=== PATIENT | male | born 1980 | race Caucasian/White ===

== ENCOUNTER 2017-11-16 12:47 | Emergency (ER) | payer BC ==
[~2017-11-16] VITALS: Ht 182.8 cm; Wt 106.6 kg
[~2017-11-16 12:47] MED LIST: CIPROFLOXACIN500 MG PO; FLOMAX0.4 MG PO; HYDROCODONE BIT1 T11 PO; NKHM; VICODIN 5/500 505 MG PO; ZITHROMAX Z PA250 MG PO
[2017-11-16 15:07] VITALS: BP 96/54
== END 2017-11-16 15:08 | disposition home or self-care (01) ==
LOC: ED 12:47
DX: R51 Headache (principal); Z90.89 Acquired absence of other organs; Z79.899 Other long term (current) drug therapy; Z88.5 Allergy status to narcotic agent

== ENCOUNTER 2017-12-01 18:04 | Emergency (ER) | payer BC ==
[~2017-12-01] VITALS: Ht 182.8 cm; Wt 106.6 kg
[2017-12-01 18:07] VITALS: BP 118/69
== END 2017-12-01 18:55 | disposition home or self-care (01) ==
LOC: ED 18:04
DX: I80.8 Phlebitis and thrombophlebitis of other sites (principal); G43.909 Migraine, unspecified, not intractable, without status migrainosus; F17.200 Nicotine dependence, unspecified, uncomplicated; Z90.89 Acquired absence of other organs; Z79.899 Other long term (current) drug therapy; Z88.5 Allergy status to narcotic agent

== ENCOUNTER → 2017-12-01 | Outpatient (CLI) | payer BC | END | disposition home or self-care (01) | LOC: US 16:00 | DX: M77.8 Other enthesopathies, not elsewhere classified (principal); I80.8 Phlebitis and thrombophlebitis of other sites; R60.9 Edema, unspecified ==

== ENCOUNTER → 2017-12-11 | Outpatient (CLI) | payer BC ==
[2017-12-11 08:46] LABS: BASO # 0.1 10*3/uL (0.0-0.1); BASO % 1.3 % (0.0-1.0); EOS # 0.3 10*3/uL (0.0-0.4); EOS % 5.1 % (1.0-4.0); HEMATOCRIT 41.8 % (42.0-52.0); LYMPH # 2.9 10*3/uL (1.3-4.4); LYMPH % 42.6 % (27.0-41.0); MEAN CELL VOLUME 93.1 fl (80.0-94.0); MEAN CORPUSCULAR HGB 31.2 pg (27.0-31.0); MEAN CORPUSCULAR HGB CONC 33.5 g/dl (33.0-37.0); MEAN PLATELET VOLUME 9.1 fl (9.6-12.3); MONO # 0.7 10*3/uL (0.1-1.0); MONO % 10.1 % (3.0-9.0); NEUT # 2.7 10*3/uL (2.3-7.9); NEUT % 40.8 % (47.0-73.0); PLATELET COUNT AUTOMATED 233 10*3/uL (130-400); RED BLOOD COUNT 4.49 10*6/uL (4.50-5.90); RED CELL DISTRI WIDTH 12.3 % (0-14.5); WHITE BLOOD COUNT 6.7 10*3/uL (4.8-10.8)
[2017-12-11 09:10] LABS: BUN 15 mg/dl (7-24); CHLORIDE 108 mmol/L (98-107); CHOLESTEROL 112 mg/dL (<200); CREATININE 1.19 mg/dL (0.70-1.30); HDL CHOLESTEROL 20 mg/dl (40-60); LDL CHOLESTEROL 26 mg/dL (9-159); POTASSIUM 4.4 mmol/L (3.5-5.1); SGOT/AST 26 IU/L (3-35); SGPT/ALT 42 U/L (12-78); SODIUM 143 mmol/L (136-145); TOTAL PROTEIN 7.5 gm/dL (6.4-8.2); TRIGLYCERIDES 330 mg/dl (<150); VLDL CHOLESTEROL 66 mg/dL (6-40)
[2017-12-11 09:19] LABS: ALKALINE PHOSPHATASE 115 U/L (45-117)
== END | disposition home or self-care (01) ==
LOC: LAB 08:24
PROVIDERS: Nurse Practitioner Family
DX: C62.91 Malignant neoplasm of right testis, unspecified whether descended or undescended (principal); I80.8 Phlebitis and thrombophlebitis of other sites; R79.89 Other specified abnormal findings of blood chemistry; Z72.0 Tobacco use

== ENCOUNTER → 2018-12-01 | Outpatient (CLI) | payer BC | END | disposition home or self-care (01) | LOC: US 07:15 | DX: K76.0 Fatty (change of) liver, not elsewhere classified (principal) ==

== ENCOUNTER → 2019-06-17 | Outpatient (CLI) | payer BC ==
[2019-06-17 10:23] LABS: BASO # 0.1 10*3/uL (0.0-0.1); EOS # 0.3 10*3/uL (0.0-0.4); EOS % 4.3 % (1.0-4.0); HEMATOCRIT 43.8 % (42.0-52.0); HEMOGLOBIN 14.5 g/dl (14.0-18.0); LYMPH # 2.3 10*3/uL (1.3-4.4); LYMPH % 34.7 % (27.0-41.0); MEAN CORPUSCULAR HGB 30.8 pg (27.0-31.0); MEAN CORPUSCULAR HGB CONC 33.1 g/dl (33.0-37.0); MEAN PLATELET VOLUME 9.1 fl (9.6-12.3); MONO # 0.6 10*3/uL (0.1-1.0); MONO % 9.4 % (3.0-9.0); NEUT # 3.4 10*3/uL (2.3-7.9); NEUT % 50.5 % (47.0-73.0); PLATELET COUNT AUTOMATED 263 10*3/uL (130-400); RED BLOOD COUNT 4.71 10*6/uL (4.50-5.90); RED CELL DISTRI WIDTH 12.2 % (0-14.5); WHITE BLOOD COUNT 6.7 10*3/uL (4.8-10.8)
[2019-06-17 10:51] LABS: BILIRUBIN, DIRECT 0.1 mg/dL (0.0-0.2)
[2019-06-17 10:52] LABS: ALBUMIN 4.1 gm/dl (3.1-4.5); ALKALINE PHOSPHATASE 113 U/L (45-117); BUN 13 mg/dl (7-24); CHLORIDE 111 mmol/L (98-107); CHOLESTEROL 142 mg/dL (<200); CREATININE 1.07 mg/dL (0.70-1.30); HDL CHOLESTEROL 28 mg/dl (40-60); LDL CHOLESTEROL 81 mg/dL (9-159); POTASSIUM 4.3 mmol/L (3.5-5.1); SGOT/AST 31 IU/L (3-35); SGPT/ALT 45 U/L (12-78); SODIUM 143 mmol/L (136-145); TRIGLYCERIDES 166 mg/dl (<150); URIC ACID 6.4 mg/dL (3.5-7.2); VLDL CHOLESTEROL 33 mg/dL (6-40)
== END | disposition home or self-care (01) ==
LOC: LAB 10:01
PROVIDERS: Internal Medicine Gastroenterology; Nurse Practitioner Family
DX: M10.9 Gout, unspecified (principal); E66.9 Obesity, unspecified; R74.8 Abnormal levels of other serum enzymes

== ENCOUNTER → 2020-01-30 | Outpatient (CLI) | payer BC ==
[2020-01-30 14:29] LABS: BASO # 0.1 10*3/uL (0.0-0.1); BASO % 1.2 % (0.0-1.0); EOS # 0.4 10*3/uL (0.0-0.4); EOS % 4.2 % (1.0-4.0); HEMATOCRIT 40.1 % (42.0-52.0); LYMPH # 3.1 10*3/uL (1.3-4.4); LYMPH % 37.3 % (27.0-41.0); MEAN CELL VOLUME 90.7 fl (80.0-94.0); MEAN CORPUSCULAR HGB CONC 34.2 g/dl (33.0-37.0); MEAN PLATELET VOLUME 9.1 fl (9.6-12.3); MONO # 0.8 10*3/uL (0.1-1.0); MONO % 9.3 % (3.0-9.0); NEUT # 3.9 10*3/uL (2.3-7.9); NEUT % 47.8 % (47.0-73.0); PLATELET COUNT AUTOMATED 232 10*3/uL (130-400); RED BLOOD COUNT 4.42 10*6/uL (4.50-5.90); RED CELL DISTRI WIDTH 12.4 % (0-14.5); WHITE BLOOD COUNT 8.2 10*3/uL (4.8-10.8)
[2020-01-30 14:54] LABS: ALBUMIN 4.1 gm/dl (3.1-4.5); ALKALINE PHOSPHATASE 109 U/L (45-117); BUN 11 mg/dl (7-24); CHLORIDE 106 mmol/L (98-107); CHOLESTEROL 121 mg/dL (<200); HDL CHOLESTEROL 25 mg/dl (40-60); LDL CHOLESTEROL 63 mg/dL (9-159); POTASSIUM 3.5 mmol/L (3.5-5.1); SGOT/AST 43 IU/L (3-35); SGPT/ALT 60 U/L (12-78); SODIUM 139 mmol/L (136-145); TOTAL PROTEIN 7.7 gm/dL (6.4-8.2); TRIGLYCERIDES 167 mg/dl (<150); URIC ACID 7.5 mg/dL (3.5-7.2); VLDL CHOLESTEROL 33 mg/dL (6-40)
== END | disposition home or self-care (01) ==
LOC: LAB 13:44
PROVIDERS: Nurse Practitioner Family
DX: E79.0 Hyperuricemia without signs of inflammatory arthritis and tophaceous disease (principal); R74.8 Abnormal levels of other serum enzymes; F17.210 Nicotine dependence, cigarettes, uncomplicated

== ENCOUNTER → 2020-01-31 | Outpatient (CLI) | payer BC | END | disposition home or self-care (01) | LOC: RAD 16:28 | DX: M10.9 Gout, unspecified (principal); R94.5 Abnormal results of liver function studies; R07.9 Chest pain, unspecified; Z72.0 Tobacco use ==

== ENCOUNTER → 2020-06-24 | Outpatient (CLI) | payer BC ==
[~2020-06-24] MED LIST changes: +ALLOPURINOL100 MG PO
== END | disposition home or self-care (01) ==
LOC: RAD 16:47
PROVIDERS: ATTEND Nurse Practitioner Family
DX: R07.81 Pleurodynia (principal); R07.9 Chest pain, unspecified; M10.9 Gout, unspecified; F17.210 Nicotine dependence, cigarettes, uncomplicated

== ENCOUNTER 2020-06-30 22:16 | Emergency (ER) | payer BC ==
[~2020-06-30] VITALS: Ht 180.3 cm; Wt 108.9 kg
[~2020-06-30 22:16] MED LIST changes: -ALLOPURINOL100 MG PO
[2020-06-30 22:21] VITALS: BP 119/81
[2020-06-30] MEDS ORDERED: ALLOPURINOL100 MG PO (22:25)
[2020-06-30 22:54] LABS: BASO # 0.1 10*3/uL (0.0-0.1); EOS # 0.4 10*3/uL (0.0-0.4); EOS % 4.6 % (1.0-4.0); HEMATOCRIT 40.5 % (42.0-52.0); LYMPH # 3.5 10*3/uL (1.3-4.4); LYMPH % 39.1 % (27.0-41.0); MEAN CELL VOLUME 90.8 fl (80.0-94.0); MEAN CORPUSCULAR HGB 30.9 pg (27.0-31.0); MEAN CORPUSCULAR HGB CONC 34.1 g/dl (33.0-37.0); MEAN PLATELET VOLUME 9.3 fl (9.6-12.3); MONO # 0.7 10*3/uL (0.1-1.0); NEUT # 4.2 10*3/uL (2.3-7.9); NEUT % 47.1 % (47.0-73.0); PLATELET COUNT AUTOMATED 250 10*3/uL (130-400); RED BLOOD COUNT 4.46 10*6/uL (4.50-5.90); RED CELL DISTRI WIDTH 11.9 % (0-14.5); WHITE BLOOD COUNT 8.9 10*3/uL (4.8-10.8)
[2020-06-30 23:14] LABS: ALBUMIN 3.8 gm/dl (3.1-4.5); ALKALINE PHOSPHATASE 117 U/L (45-117); BUN 13 mg/dl (7-24); CHLORIDE 108 mmol/L (98-107); CREATININE 1.09 mg/dL (0.70-1.30); POTASSIUM 3.5 mmol/L (3.5-5.1); SGOT/AST 36 IU/L (3-35); SGPT/ALT 58 U/L (12-78); SODIUM 141 mmol/L (136-145); TOTAL PROTEIN 7.6 gm/dL (6.4-8.2)
[2020-06-30 23:15] LABS: TROPONIN I < 0.015 ng/ml (<0.045)
[2020-06-30 23:17] LABS: ACT PARTIAL THROMBO TIME 28.4 SECONDS (20.0-32.1); INTERNATIONAL NORM RATIO 0.9 (2.0-3.5)
== END 2020-07-01 01:42 | disposition home or self-care (01) ==
LOC: ED 22:16
PROVIDERS: Physician Assistant
DX: R07.89 Other chest pain (principal); R22.2 Localized swelling, mass and lump, trunk; M54.9 Dorsalgia, unspecified; F17.200 Nicotine dependence, unspecified, uncomplicated; Z88.5 Allergy status to narcotic agent; Z79.899 Other long term (current) drug therapy

== ENCOUNTER → 2020-07-24 | Outpatient (CLI) | payer BC ==
[~2020-07-24] MED LIST changes: +ALLOPURINOL100 MG PO
== END | disposition home or self-care (01) ==
LOC: US 07:30
PROVIDERS: ATTEND Nurse Practitioner Family
DX: K76.0 Fatty (change of) liver, not elsewhere classified (principal)

== ENCOUNTER → 2020-08-08 | Outpatient (CLI) | payer BC | END | disposition home or self-care (01) | LOC: COVID19 09:41 | PROVIDERS: ATTEND Nurse Practitioner Family | DX: Z11.52 Encounter for screening for COVID-19 (principal); R19.7 Diarrhea, unspecified; R53.83 Other fatigue ==

== ENCOUNTER → 2020-10-07 | Outpatient (CLI) | payer BC | END | disposition home or self-care (01) | LOC: RAD 15:37 | PROVIDERS: ATTEND Nurse Practitioner Family | DX: M25.512 Pain in left shoulder (principal); R20.0 Anesthesia of skin ==

== ENCOUNTER 2020-11-13 23:15 | Inpatient (IN) | payer BC ==
[~2020-11-13] VITALS: Ht 182.8 cm; Wt 110.4 kg
[2020-11-13 23:23] VITALS: BP 128/80
[2020-11-13 23:46] LABS: BASO % 0.4 % (0.0-1.0); EOS # 0.1 10*3/uL (0.0-0.4); EOS % 0.9 % (1.0-4.0); HEMATOCRIT 44.4 % (42.0-52.0); LYMPH % 19.2 % (27.0-41.0); MEAN CELL VOLUME 92.1 fl (80.0-94.0); MEAN CORPUSCULAR HGB 31.3 pg (27.0-31.0); MONO # 1.1 10*3/uL (0.1-1.0); MONO % 10.2 % (3.0-9.0); NEUT # 7.3 10*3/uL (2.3-7.9); PLATELET COUNT AUTOMATED 285 10*3/uL (130-400); RED BLOOD COUNT 4.82 10*6/uL (4.50-5.90); RED CELL DISTRI WIDTH 12.3 % (0-14.5); WHITE BLOOD COUNT 10.5 10*3/uL (4.8-10.8)
[2020-11-14] VITALS (8 sets, daily range): BP systolic 109–147; BP diastolic 48–83
[2020-11-14 00:02] LABS: ALBUMIN 4.2 gm/dl (3.1-4.5); ALKALINE PHOSPHATASE 126 U/L (45-117); BUN 11 mg/dl (7-24); CHLORIDE 105 mmol/L (98-107); CREATININE 1.19 mg/dL (0.70-1.30); LIPASE 42 U/L (73-393); SGOT/AST 21 IU/L (3-35); SGPT/ALT 38 U/L (12-78); SODIUM 139 mmol/L (136-145); TOTAL PROTEIN 8.4 gm/dL (6.4-8.2)
[2020-11-14 06:14] LABS: ALKALINE PHOSPHATASE 115 U/L (45-117); BUN 13 mg/dl (7-24); CHLORIDE 104 mmol/L (98-107); CHOLESTEROL 128 mg/dL (<200); CREATININE 1.06 mg/dL (0.70-1.30); HDL CHOLESTEROL 28 mg/dl (40-60); LDL CHOLESTEROL 72 mg/dL (9-159); POTASSIUM 3.6 mmol/L (3.5-5.1); SGOT/AST 22 IU/L (3-35); SGPT/ALT 36 U/L (12-78); SODIUM 140 mmol/L (136-145); TRIGLYCERIDES 140 mg/dl (<150); VLDL CHOLESTEROL 28 mg/dL (6-40)
[2020-11-14 06:21] LABS: BASO % 0.2 % (0.0-1.0); EOS % 0.4 % (1.0-4.0); HEMATOCRIT 43.8 % (42.0-52.0); LYMPH # 1.5 10*3/uL (1.3-4.4); LYMPH % 14.7 % (27.0-41.0); MEAN CORPUSCULAR HGB 30.9 pg (27.0-31.0); MEAN CORPUSCULAR HGB CONC 33.6 g/dl (33.0-37.0); MEAN PLATELET VOLUME 9.4 fl (9.6-12.3); MONO % 10.4 % (3.0-9.0); NEUT # 7.3 10*3/uL (2.3-7.9); PLATELET COUNT AUTOMATED 287 10*3/uL (130-400); RED BLOOD COUNT 4.76 10*6/uL (4.50-5.90); RED CELL DISTRI WIDTH 12.2 % (0-14.5); WHITE BLOOD COUNT 9.9 10*3/uL (4.8-10.8)
[2020-11-15] VITALS: BP 126/64
[2020-11-15 06:37] LABS: BASO # 0.1 10*3/uL (0.0-0.1); BASO % 0.5 % (0.0-1.0); EOS # 0.3 10*3/uL (0.0-0.4); EOS % 2.8 % (1.0-4.0); HEMATOCRIT 40.1 % (42.0-52.0); LYMPH # 2.9 10*3/uL (1.3-4.4); LYMPH % 30.1 % (27.0-41.0); MEAN CELL VOLUME 93.7 fl (80.0-94.0); MEAN CORPUSCULAR HGB 30.8 pg (27.0-31.0); MEAN CORPUSCULAR HGB CONC 32.9 g/dl (33.0-37.0); MEAN PLATELET VOLUME 9.5 fl (9.6-12.3); MONO # 1.1 10*3/uL (0.1-1.0); MONO % 11.5 % (3.0-9.0); NEUT # 5.2 10*3/uL (2.3-7.9); NEUT % 54.8 % (47.0-73.0); PLATELET COUNT AUTOMATED 242 10*3/uL (130-400); RED BLOOD COUNT 4.28 10*6/uL (4.50-5.90); RED CELL DISTRI WIDTH 12.4 % (0-14.5); WHITE BLOOD COUNT 9.6 10*3/uL (4.8-10.8)
[2020-11-15 07:01] LABS: ALBUMIN 3.7 gm/dl (3.1-4.5); ALKALINE PHOSPHATASE 96 U/L (45-117); BUN 17 mg/dl (7-24); CHLORIDE 108 mmol/L (98-107); CREATININE 1.05 mg/dL (0.70-1.30); POTASSIUM 3.5 mmol/L (3.5-5.1); SGOT/AST 20 IU/L (3-35); SGPT/ALT 29 U/L (12-78); SODIUM 141 mmol/L (136-145); TOTAL PROTEIN 7.2 gm/dL (6.4-8.2)
[2020-11-15 08:00] VITALS: BP 90/60
[2020-11-15 12:00] VITALS: BP 117/68
== END 2020-11-15 16:36 | disposition home or self-care (01) | DRG 390 ==
LOC: ED 23:15 → 4E 11-14 02:49 → EDHOLD 11-14 02:49 → 4E 11-14 05:04
PROVIDERS: Internal Medicine; ADMIT Internal Medicine; ATTEND Internal Medicine
PROC: 0D9670Z Drainage of Stomach with Drainage Device, Via Natural or Artificial Opening (ICD-10-PCS; principal; 2020-11-14)
DX: K56.609 Unspecified intestinal obstruction, unspecified as to partial versus complete obstruction (principal); R73.9 Hyperglycemia, unspecified; E83.41 Hypermagnesemia; R74.8 Abnormal levels of other serum enzymes; F17.210 Nicotine dependence, cigarettes, uncomplicated; R12 Heartburn; Z88.6 Allergy status to analgesic agent; Z85.47 Personal history of malignant neoplasm of testis; Z71.6 Tobacco abuse counseling

== ENCOUNTER → 2024-07-08 | Outpatient (CLI) | payer BC ==
[2024-07-08 08:35] LABS: BASO # 0.1 10*3/uL (0.0-0.1); EOS # 0.4 10*3/uL (0.0-0.4); EOS % 5.4 % (1.0-4.0); HEMATOCRIT 42.2 % (42.0-52.0); MEAN CELL VOLUME 91.9 fl (80.0-94.0); MEAN CORPUSCULAR HGB 30.7 pg (27.0-31.0); MEAN CORPUSCULAR HGB CONC 33.4 g/dl (33.0-37.0); MEAN PLATELET VOLUME 8.8 fl (9.6-12.3); MONO # 0.7 10*3/uL (0.1-1.0); MONO % 9.6 % (3.0-9.0); PLATELET COUNT AUTOMATED 237 10*3/uL (130-400); RED BLOOD COUNT 4.59 10*6/uL (4.50-5.90); RED CELL DISTRI WIDTH 12.2 % (0-14.5); WHITE BLOOD COUNT 7.2 10*3/uL (4.8-10.8)
[2024-07-08 09:01] LABS: ALKALINE PHOSPHATASE 112 U/L (46-116); BUN 13 mg/dl (9-23); CHLORIDE 106 mmol/L (98-107); CHOLESTEROL 119 mg/dL (<200); LDL CHOLESTEROL 58 mg/dL (9-159); POTASSIUM 3.8 mmol/L (3.4-5.1); SGPT/ALT 44 U/L (5-49); TOTAL PROTEIN 7.7 gm/dL (6.0-8.0); TRIGLYCERIDES 170 mg/dl (<150)
[2024-07-08 09:40] LABS: VITAMIN D, 25-HYDROXY 26.3 ng/mL (30-100)
[2024-07-11 21:06] LABS: TESTOS, FREE 8.2 pg/mL (6.8-21.5)
== END | disposition home or self-care (01) ==
LOC: LAB 08:19
PROVIDERS: ATTEND Nurse Practitioner Family
DX: Z13.1 Encounter for screening for diabetes mellitus (principal); Z13.220 Encounter for screening for lipoid disorders; K76.0 Fatty (change of) liver, not elsewhere classified; Z85.47 Personal history of malignant neoplasm of testis; R53.82 Chronic fatigue, unspecified; Z00.00 Encounter for general adult medical examination without abnormal findings

== ENCOUNTER → 2025-06-08 | Outpatient (CLI) | payer BC ==
[2025-06-08 12:42] LABS: BUN 13 mg/dl (9-23); SGPT/ALT 57 U/L (5-49)
[2025-06-12 03:06] LABS: TESTOS, FREE 9.0 pg/mL (6.8-21.5)
== END | disposition home or self-care (01) ==
LOC: RHCWE 09:57
PROVIDERS: ATTEND Nurse Practitioner Family
DX: N52.9 Male erectile dysfunction, unspecified (principal)